=== PATIENT | male | born 1995 | race African-American/Black ===

== ENCOUNTER 2021-02-18 02:04 | Emergency (ER) | payer MEDICAID, SELFPAY ==
[2021-02-18 02:10] VITALS: BP 157/78; PULSE 65; RESP 16; TEMP 36.9; O2SAT 99; BMI 29.9
[2021-02-18 02:27] LABS: Appearance Urine CLEAR; Color Urine YELLOW; Glucose Urine UA NEG (NEG); Leukocyte Esterase Urine NEG (NEG); Nitrite Urine NEG (NEG); UACC Culture Trigger NO; Urine Blood NEG (NEG); Urine Ketones NEG (NEG); Urine Protein NEG (NEG-TRACE)
--- NOTE | 2021-02-18 03:25 | PC.NURSE ---
pt reports have unprotected sex. discomfort while voiding.
[2021-02-18 03:59] LABS: CT PCR NOT DETECTED (Not Detect.); NG PCR DETECTED (Not Detect.)
--- NOTE | 2021-02-18 05:22 | ED_ITS ---
HPI - Male Genitourinary General Chief complaint: Urogenital-Male Stated complaint: chlamydia Time Seen by Provider: 02/18/21 05:18 Source: patient Mode of arrival: ambulatory Limitations: no limitations History of Present Illness HPI Narrative: Patient comes emergency room complaining of 1 week of dysuria and penile discharge. Patient denies fever chills. Patient states that he is concerned that he has an STD. Related Data Allergies Allergy/AdvReac Type Severity Reaction Status Date / Time No Known Allergies Allergy Verified 02/18/21 02:09 Review of Systems Review of Systems: Constitutional : No Weight loss, No Fever, No Chills, No Night Sweats, No Fatigue, No Malaise ENT/Mouth : No Hearing loss, No Ear Pain, No Nasal Congestion, No Sinus Pain, No Hoarseness, No sore throat, No Rhinorrhea, No Swallowing Difficulty Eyes: No Eye Pain, No Swelling, No Redness, No Foreign Body, No Discharge, No Vision Changes Cardiovascular : No Chest Pain, No SOB, No Dyspnea on Exertion, No Orthopnea, No Edema, No Palpitations Respiratory : No Cough, No Sputum, No Wheezing, No Smoke Exposure, No Dyspnea Gastrointestinal : No Nausea, No Vomiting, No Diarrhea, No Constipation, No abdominal Pain, No Hematochezia, No Melena Genitourinary : Complaining of dysuria and penile discharge, No Urinary Frequency, No Hematuria, No Urinary Incontinence, No Urgency, No Flank Pain, No Urinary Flow Changes, No Hesitancy Musculoskeletal : No joint pain, No Myalgias, No Joint Swelling Skin : No Skin Lesions, No rash Neuro : No Weakness, No Numbness, No Paresthesias, No Loss of Consciousness, No Dizziness, No Headache Psych : No Anxiety/Panic, No Depression, No SI/HI/AH/VH, No Social Issues, Heme/Lymph: No Bruising, No Bleeding,No Lymphadenopathy Endocrine : No Polyuria, No Polydipsia, No Temperature Intolerance [facility] Past Medical History Medical History No known health problems Social History Social History Advance Directives: No Advance Directives Information Provided: Yes Physical Exam Vital Signs: Vital Signs: Last Vital Signs Temp 98.5 F 02/18/21 02:10 Pulse 65 02/18/21 02:10 Resp 16 02/18/21 02:10 BP 157/78 H 02/18/21 02:10 Pulse Ox 99 02/18/21 02:10 Body Mass Index 29.9 Const: Other: Patient was given 1 dose of IM ceftriaxone. Tested negative for chlamydia. Discussed safe sexual practices with the patient. MDM - Male Genitourinary Lab Data Labs: Lab Results 02/18/21 02/18/21 Range/Units 02:21 02:21 Urine Color YELLOW Urine Appearance CLEAR Urine pH 7.0 (5.0-8.0) Ur Specific [place] 1.020 (1.005-1.025) Urine Protein NEG (NEG-TRACE) MG/DL Urine Glucose (UA) NEG (NEG) MG/DL Urine Ketones NEG (NEG) MG/DL Urine Blood NEG (NEG) Urine Nitrite NEG (NEG) Ur Leukocyte Esterase NEG (NEG) Chlam trachomat DNA PCR NOT DETECTED (Not Detect.) N.gonorrhoeae DNA (PCR) DETECTED A (Not Detect.) Discharge Plan Discharge Clinical Impression: Gonorrhea Patient Disposition: Home, Self-Care Instructions: Gonorrhea (ED) Additional Instructions: Please follow-up with your primary care physician tomorrow. If you have any worsening or new symptoms, please return to the emergency room or call 911
[2021-02-18 05:26] VITALS: RESP 16
[2021-02-18] MEDS: cefTRIAXone sodium 500 MG, Lidocaine HCl 1 % MPF 1 ML IM (05:34)
== END 2021-02-18 05:41 | disposition home or self-care (01) ==
PROVIDERS: Emergency Provider Emergency Medicine; PCP Internal Medicine
DX: A54.9 Gonococcal infection, unspecified (principal)
CPT/HCPCS: 81003; 87491; 87591; 96372; 99284; J0696

== ENCOUNTER 2021-04-07 23:34 | Emergency (ER) | payer MEDICAID, SELFPAY ==
[2021-04-07 23:59] VITALS: BP 129/84; PULSE 84; RESP 20; TEMP 36.3; O2SAT 98; BMI 30.8
--- NOTE | 2021-04-07 23:59 | ED.MALEGU ---
HPI - Male Genitourinary General Chief complaint: Urogenital-Male Stated complaint: STD screening Time Seen by Provider: 04/07/21 23:59 Source: patient Mode of arrival: ambulatory Limitations: no limitations History of Present Illness HPI Narrative: Patient history of GC last month treated with IM Rocephin come back again for last 3 days having similar discharge. According to him his partner was also treated. Chlamydia was negative last month Related Data Allergies Allergy/AdvReac Type Severity Reaction Status Date / Time No Known Allergies Allergy Verified 02/18/21 02:09 Review of Systems Review of Systems: Yes all other systems are reviewed and are negative [facility] Past Medical History Medical History No known health problems Social History Social History Advance Directives: No Physical Exam Vital Signs: Vital Signs: Last Vital Signs Temp 97.4 F 04/07/21 23:59 Pulse 84 04/07/21 23:59 Resp 20 04/07/21 23:59 BP 129/84 04/07/21 23:59 Pulse Ox 98 04/07/21 23:59 Body Mass Index 30.8 Const: General: cooperative Nutritional Appearance: average body habitus : Testes: Testes normal Male genitals images: 1. Yellowish colored minimal discharge Discharge Plan Discharge Clinical Impression: Gonorrhea Patient Disposition: Home, Self-Care Instructions: Gonorrhea (ED) Additional Instructions: Use safe practice ask your partner to be treated also
[2021-04-08] MEDS: cefTRIAXone sodium 500 MG, Lidocaine HCl 1 % MPF 1 ML IM (00:39)
[2021-04-08 16:06] LABS: CT PCR NOT DETECTED (Not Detect.); NG PCR NOT DETECTED (Not Detect.)
== END 2021-04-08 00:46 | disposition home or self-care (01) ==
PROVIDERS: Emergency Provider Internal Medicine
DX: A54.9 Gonococcal infection, unspecified (principal); Z20.2 Contact with and (suspected) exposure to infections with a predominantly sexual mode of transmission; Z79.899 Other long term (current) drug therapy
CPT/HCPCS: 87491; 87591; 96372; 99283; 99284; J0696